=== PATIENT | female | born 1960 | race Caucasian/White ===

== ENCOUNTER 2017-02-06 07:19 | Emergency (ER) | payer OTHER ==
[~2017-02-06] VITALS: Ht 172.7 cm; Wt 86.2 kg
[2017-02-06 07:20] VITALS: BP_SYST 122
[2017-02-06] MEDS ORDERED: DIAZEPAM 10 MG/2 ML DISP.SYRIN IM ONE (07:45)
[2017-02-06] MEDS ORDERED: ONDANSETRON 4 MG ODT TAB PO ONE (07:45)
[2017-02-06] MEDS ORDERED: MORPHINE 4 MG/ML INJ. SYRINGE IM ONE (07:45)
[2017-02-06 08:55] VITALS: BP_SYST 121
== END 2017-02-06 08:56 | disposition home or self-care (01) ==
LOC: SED 07:19
DX: M54.9 Dorsalgia, unspecified (principal)
CPT/HCPCS: 72072; 72110; 96372; 99284; J2270; J3360; Q0162